=== PATIENT | male | born 1965 | race Caucasian/White ===

== ENCOUNTER 2020-06-16 17:45 | Inpatient (IN) ==
[2020-06-16] MEDS ORDERED: ONDANSETRON INJ 2 MG/ML 2 ML VIAL IV STA ×2 (18:20→19:44)
[2020-06-16] MEDS: HYDROmorphone INJ 0.5 MG/0.5 ML SYR IV PRN ×2 (18:25→19:53)
[2020-06-16 18:30] LABS: Hematocrit (blood only) 42.2 % (42-52); Hemoglobin 15.2 g/dL (14.0-18.0); Immature Granulocytes # (auto) 0.02 K/uL (0.00-0.02); Immature Granulocytes % (auto) 0.2 %; Lymphocytes # (auto) 0.46 K/uL (1.2-3.4); Lymphocytes % (auto) 3.6 %; Mean Corpuscular Volume 85.9 fL (80-100); Mean Platelet Volume 9.3 fL (7.4-10.4); Monocytes # (auto) 0.41 K/uL (0.11-0.59); Monocytes % (auto) 3.2 %; Neutrophils # (auto) 12.04 K/uL (1.4-6.5); Platelet Count 312 K/uL (130-400); RDW Coefficient of Variation 12.8 % (11.5-14.5); RDW Standard Deviation 40.2 fL (36.4-46.3); Red Blood Count 4.91 M/uL (4.7-6.1); White Blood Count 12.93 K/uL (4.8-10.8)
[2020-06-16] MEDS ORDERED: SODIUM CHLORIDE 0.9% 1000ML 1,000 ML IV SCH (18:30)
[2020-06-16 18:51] LABS: Albumin Level 4.3 gm/dl (3.4-5.0); Calcium 9.8 mg/dl (8.5-10.1); Creatinine Clr Calc Pharmacy 56.3 ml/min; Potassium 3.6 mmol/L (3.5-5.1)
[2020-06-16 18:54] LABS: Bilirubin,Total 0.8 mg/dl (0.2-1); Globulin 4.2 gm/dl (2.5-4.0); Total Protein 8.5 gm/dl (6.4-8.2)
[2020-06-16 18:55] LABS: Appearance Urine Clear (Clear); Bacteria Urine Automated Negative (Negative); Bilirubin Urine Negative (Negative); Blood Urine Negative (Negative); Color Urine Yellow; Epithelial Cell Urine Auto 20-30 /lpf (0-5); Glucose Urine UA Negative (Negative); Ketones Urine 1+ (Negative); Leukocyte Esterase Urine Negative (Negative); Nitrite Urine Negative (Negative); RBC Urine Automated 0-4 /hpf (0-4); Specific Gravity Urine 1.015 (1.000-1.030); Urobilinogen Urine Negative (Negative); pH Urine 7.5 (4.5-7.5)
[2020-06-16 19:05] LABS: Protein Urine Negative (Negative); Sulfosalicylic Acid Urine Negative (Negative)
[2020-06-16] MEDS ORDERED: IOVERSOL 100ml IV ONE (19:23)
[2020-06-16] MEDS ORDERED: LACTATED RINGER'S 1,000 ML IV SCH (19:45)
--- NOTE | 2020-06-16 20:06 | CT Scan Report ---
CT OF THE ABDOMEN AND PELVIS WITH CONTRAST CLINICAL HISTORY: Upper abdomen pain. Evaluate for acute pancreatitis. COMPARISON STUDY: CT of the abdomen and pelvis September 08, 2018. MRCP April 28, 2010. TECHNIQUE: Following IV administration of 93 mL of Optiray-320, axial images of the abdomen and pelvi s were obtained from the lung bases to the proximal femurs. Images were reviewed in the axial, sagitt al, and coronal planes. IV contrast was administered without complication. Automated exposure contro l was utilized for the study. A dose lowering technique was utilized adhering to the principles of A NEAL. CT DOSE: 772.95 mGycm FINDINGS: Lung bases are unremarkable. No pneumatosis, free air or portal venous gas is present. Ther e is probable fatty infiltration of the liver. No biliary or pancreatic ductal dilatation is noted. N ote is made of moderate peripancreatic infiltration and fluid. In addition, there is fluid adjacent t o the duodenum and extending within the bilateral anterior pararenal spaces. The pancreatic head and uncinate process are edematous. There is no evidence for gland necrosis. Note is made of a small 1.5 cm fluid collection located between the pylorus and the pancreas. No additional peripancreatic fluid collections are present. The splenic vein is patent. No pseudoaneurysm is identified on this non-CTA exam. The spleen, adrenal glands and kidneys are normal. The appendix is normal. There is no evidence for a bowel obstruction. Colonic diverticulosis is noted without evidence for acute diverticulitis. Mild bladder wall thickening is present. Major vasculature is patent. There are no suspicious osseous lesions. IMPRESSION: Findings consistent with acute pancreatitis. No evidence for gland necrosis. Edematous p ancreatic head and uncinate process with moderate peripancreatic fluid and infiltration. Small 1.5 cm acute peripancreatic fluid collection. ACT 112: Negative or not required by law. Electronically signed by: Jason Mcclain M.D. 06/16/2020 8:05 PM
--- NOTE | 2020-06-16 21:44 | History & Physical Report ---
Date of Service June 16, 2020 Assessment & Plan (1) DJD of both shoulders: (2) Hyperlipidemia: (3) Hypertension: (4) Pancreatitis: Pt is a 55yo male with a Hx of recurrent pancreatitis, DJD of both shoulders, HTN and HLD who was admitted with acute alcoholic pancreatitis. Of note, pt would NOT like his PCP to be notified, informed or contacted about this hospital visit. Pancreatitis in the setting of recent alcohol use -Pt presents with abdominal pain, nausea and vomiting -pt states that he binge drinks beer, not a daily drinker -of note, pt was previously hospitalized here for the same after drinking while on vacation in [facility] -Denies a Hx of gallstones, hypertriglyceridemia or a recent scorpion bite -WBC elevated, lipase chronically elevated-this admission 10,590, CT abd/pelvis showed acute pancreatitis. -Trops and EKG ordered to rule out a cardiac cause given persistent epigastric pain -NPO -LR@200mls/hr -morphine 3mg q2h for pain -zofran 4mg q6h PRN and phenergan 12.5mg q6h PRN ordered for N/V BRENDA -Cr elevated to 1.55 in the setting of N/V, dehydration -baseline of ~ 1 -LR@200mls/hr as above -trend Cr with AM labs Alcohol abuse -Pt states he does NOT think he has a problem with alcohol as he is not a daily drinker -Would NOT like his PCP to know about his hospitalization this time, as he states he would like to tell him himself -will not put on AWSS protocol, but would closely monitor for signs of withdrawal -consider resources for help given repeated admissions for the same HTN -continue home valsartan-HCTZ 320mg/25mg daily HLD -continue home lovastatin 20mg daily Anxiety -continue home ativan 1mg PO TID PRN Insomnia -continue home temazepam 30mg PO qhs DJD of shoulder -stable FEN/GI: NPO except meds, LR@200mls/hr DVT Prophylaxis: Heparin BID CODE STATUS: Full code Dispo: Med/Surg History of Present Illness Primary Care Provider: NO PCP Pt is a 55yo male with a Hx of recurrent pancreatitis, DJD of both shoulders, HTN and HLD who was admitted with acute alcoholic pancreatitis. Of note, pt would NOT like his PCP to be notified, informed or contacted about this hospital visit. Pt states that he had 9 beers last night and 6 beers the night before that. This morning after breakfast, he developed 3/10 abdominal pain that slowly progressed throughout the day to 10/10. The pain which is non-radiating was associated with nausea and frequent bouts of NBNB emesis. He states that he is does not believe he has a problem with alcohol, but his body just "reacts" abnormally to larger amounts of alcohol than usual. He was previously admitted here for the same in Aug 2018 after drinking while on vacation in [facility]. Of note, he does not want his PCP to be made aware of this hospitalization stating that he knows what he should be doing and does not want him "blindsided". He denies a Hx of gallst ones, states his gallbladder has not been removed. Lives alone with his dog and tonight denies that there is any underlying reason that makes him drink so much alcohol all at once. States he has been binge drinking since his college days. PMHx: HTN, HLD, DJD of both shoulders, Anxiety, Insomnia PSH: Shoulder surgery in 1988 Allergies: NKDA Meds: See below Fam Hx: Mom, , Hx of Parkinson's Dementia. Dad, 83 and alive. Hx of sciatica and had a heart valve replaced. Social hx: Never a smoker, no recreational drug use, states on average he drinks 1 beer a day but binge drinks mostly. Lives in [place] with his cat. 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 Allergies Allergy/AdvReac Type Severity Reaction Status Date / Time No Known Allergies Unverified 06/16/20 19:18 Home Medications Home Medications Medication Instructions Recorded Confirmed Type lorazepam 1 mg PO TID PRN 09/08/18 06/16/20 History lovastatin 20 mg PO QAM 09/08/18 06/16/20 History temazepam 30 mg PO HS 09/08/18 06/16/20 History valsartan-hydrochlorothiazide 1 tab PO DAILY 06/16/20 06/16/20 History Past Med/Surg History Medical History (Updated 04/23/20 @ 13:54 by [facility]) Hyperlipidemia Hypertension Kidney stones Fam hx Pancreatitis Surgical History History of shoulder surgery Right Family History Mother Parkinson disease Other Kidney stones Social History Smoking Status: Never smoker Hx Alcohol Use: Yes Alcohol type: beer Alcohol Intake Frequency Comment: Occasional Hx Substance Use: No Preferred Language: Amharic Communication Ability: Effective 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 Beliefs That Will Affect Care: None marital status: Single Current Living Situation: Alone current occupational status: employed Feels Safe at Home: Yes Safety Concerns: Feels Safe At This Time Assistive Devices: Glasses Review of Systems Constitutional: + anorexia; no fever, no chills and no sweats Eyes: no worsening vision Ear, Nose, Mouth, Throat: no nasal congestion and no sore throat Respiratory: no cough and no dyspnea Cardiovascular: no chest pain, no dyspnea on exertion, no palpitations and no edema Gastrointestinal: + abdominal pain, + nausea and + vomiting; no constipation, no diarrhea/loose stools and no blood in stools Genitourinary: no dysuria and no hematuria Musculoskeletal: no back pain Integumentary: no rash Neurologic: no tingling, no numbness, no headache(s) and no confusion Psychiatric: + anxiety; no confusion Physical Exam Physical Exam: General: Alert, oriented. No acute distress, laying in bed. Skin: No noted rashes or bruises Psych: Appropriate mood and affect Neuro: No gross deficits HEENT: NC/AT Chest: Nontender to palpation. CV: RRR, Normal s1, s2. No murmurs appreciated Resp: Breath sounds clear bilaterally, no increased effort of breathing. No crackles/rhonchi/rales. Abdomen: BS+. Soft, tender in epigastrium and RUQ and RLQ mostly, nondistended. Extremities: No edema in lower extremities bilaterally. Results & Data Results & Data ([facility]) Vital Signs (Past 12 Hours) Vital Signs Temp Pulse Resp BP Pulse Ox 06/16/20 21:00 56 L 14 156/97 H 99 06/16/20 20:30 60 16 151/97 H 100 06/16/20 20:00 72 22 150/98 H 99 06/16/20 19:44 70 19 154/107 H 99 06/16/20 19:36 59 L 19 06/16/20 19:11 55 L 16 100 06/16/20 19:00 50 L 23 148/85 H 99 06/16/20 17:54 36.3 C L 90 20 129/83 97 Supervising Physician Co-Signing Physician Notes Patient seen and examined, chart reviewed, case discussed with Dr. Gibbons and I agree with her assessment and plan as documented above. Briefly, patient is a 55yo C male presenting with acute pancreatitis secondary to EtOH intake. Patient has been admitted with the same in August 2018. States that he has been drinking more than usual. Epigastric abdominal pain and nausea similar to prior. Lab workup with elevated lipase. CT with findings consistent with acute pancreatitis. On physical exam patient is afebrile, mildly hypertensive and bradycardic, NAD, resting comfortably Skin - warm, dry, intact, no rashes/lesions, anicteric HEENT - NC/AT, PERRL, EOMI, MMM, neck supple Heart - +S1/S2, regular, bradycardic, no m/r/g Lungs - CTA Abd - diminished bowel sounds throughout, soft, ND, tender in epigastric region Ext - warm, well perfused, no clubbing/edema/cyanosis, 2+ pulses Neuro -grossly nonfocal Labs and images reviewed. Assessment/Plan - 55yo C male presenting with acute pancreatitis most likely secondary to EtOH use. No complications identified on CT. Patient is hemodynamically stable, nontoxic in appearance. +Pain and nausea -Admit to medical, NPO -Aggressive IVF with LR at 200mL/hr -Morphine as needed for pain -Zofran and Phenergan as needed for nausea -Continue qamar medications. Patient is on a thiazide diuretic which can lead to acute pancreatitis -Remainder of plan as above Of note, patient wishes that his PCP not be notified of his admission and wishes to "tell him in my own way". I informed him that his physician will most likely have access to [facility] records and may be alerted of his admission, however, we will not contact him personally. Resident Activity Tracking Resident Involvement: Resident Care Provided Care Provided: Adult Hospital Medicine (1) Hyperlipidemia Hyperlipidemia type: unspecified Qualified Code(s): E78.5 - Hyperlipidemia, unspecified (2) Pancreatitis Acute pancreatitis complication: unspecified Chronicity: acute Pancreatitis type: unspecified pancreatitis type Qualified Code(s): K85.90 - Acute pancreatitis without necrosis or infection, unspecified (3) Hypertension Hypertension type: essential hypertension Qualified Code(s): I10 - Essential (primary) hypertension
--- NOTE | 2020-06-16 21:44 | Emergency Department Note ---
Impression & Plan Pancreatitis ED Provider Note INFORMANT: Patient ED PROVIDER(S): Pan Higgins MD CHIEF COMPLAINT: Abdominal pain PLAN: Disposition: Admitted Condition: Good MEDICAL DECISION MAKING: Patient presented to the emergency department because of upper abdominal pain. IV was established. Patient was given Dilaudid and Zofran for symptom control. He was hydrated. His blood work was unremarkable except for an elevated lipase consistent with pancreatitis and mild leukocytosis. CT scan of the abdomen pelvis was performed and was consistent with pancreatitis as well. The patient was switched to lactated Ringer's at 250 mL an hour. He will need further management in the hospital. The patient was NPO. Consultation was made with internal medicine, Dr. Engel the patient was admitted for further management. Triage Nursing notes reviewed and agree them. Vital Signs: reviewed and remarkable for no significant abnormalities Differential diagnosis: Appendicitis, testicular torsion, infections, diverticulitis, UTI, obstruction, mesenteric ischemia, aortic pathology, inflammatory bowel disease, renal colic, PUD, pancreatitis, biliary pathology, hernia, volvulus, constipation, as well as other pathologies. Diagnostics interpreted by me: Cardiac Monitoring: Cardiac monitoring ordered by me: The patient was placed on continuous cardiac monitoring and observed. It revealed a normal sinus rhythm at 62 beats per minute without ectopy or evidence of dysrhythmia. Imaging studies: CT scan of the abdomen pelvis consistent with pancreatitis. I refer to the EMR for further details Consultation(s): [facility] hospitalist service, Dr. Engel HPI: The patient is a 55year old male who presents to the Emergency Room with complaints of upper abdominal pain. This started last night and is worsening. The patient also notes the following associated symptoms, nausea. The patient has found no relieving factors. Current pain is rated as 6/10. Patient has history of pancreatitis. He states this feels similar. He did have alcohol recently. Pt denies LOC, headache, fevers, chills, diaphoresis, visual changes, neck pain, chest pain, breathing difficulties, vomiting back pain, melena, hematochezia, urinary symptoms, numbness, weakness, lymphadenopathy, rash, or other complaints. ROS: See above HPI for pertinent positives & negatives. A total of 10 systems reviewed and were otherwise negative. PAST MEDICAL HISTORY:See Below, pancreatitis PAST SURGICAL HISTORY:See Below, FAMILY HISTORY:See Below SOCIAL HISTORY:See Below, positive EtOH HOME MEDICATIONS:See Below ALLERGIES:See Below VITALS:See Below PHYSICAL EXAMINATION: GENERAL: Awake, alert, uncomfortable-appearing, in no distress HENT: Normocephalic, atraumatic. Oropharynx unremarkable. EYES: Normal conjunctiva. Sclera non-icteric. NECK: Inspection normal. Non-tender. Supple. No nuchal rigidity. FROM. No masses. RESPIRATORY: Clear to auscultation. No wheezes. No rales. Normal respiratory effort. CARDIAC: Normal rate. Normal rhythm. No murmurs. No rubs. Extremities warm and well perfused. Pulses equal. No JVD. GI: Soft, non-distended. Upper midline tenderness to palpation. No rebound or g uarding. No masses. RECTAL: Deferred. MUSCULOSKELETAL: Atraumatic. Chest examination reveals no tenderness. The back is symmetrical on inspection without obvious abnormality. There is no CVA tenderness to palpation. No joint edema. LOWER EXTREMITIES: Calves are equal size bilaterally and non-tender. No edema. No discoloration. NEURO: Normal sensorium. No sensory or motor deficits noted. SKIN: No rash or jaundice noted. Pan Higgins MD Past Med/Surg History Medical History (Updated 04/23/20 @ 13:54 by [employer] [place]) Hyperlipidemia Hypertension Kidney stones Fam hx Pancreatitis Surgical History History of shoulder surgery Right Family History Mother Parkinson disease Other Kidney stones Social History Smoking Status: Never smoker Hx Alcohol Use: No Hx Substance Use: No Preferred Language: Serbian Communication Ability: Effective Tube Man Required: No Beliefs That Will Affect Care: None marital status: Single Current Living Situation: Alone current occupational status: employed Feels Safe at Home: Yes Assistive Devices: None Allergies Allergies Allergy/AdvReac Type Severity Reaction Status Date / Time No Known Allergies Unverified 06/16/20 19:18 Home Meds Home Medications Medication Instructions Recorded Confirmed lorazepam 1 mg PO TID PRN 09/08/18 06/16/20 lovastatin 20 mg PO QAM 09/08/18 06/16/20 temazepam 30 mg PO HS 09/08/18 06/16/20 valsartan-hydrochlorothiazide 1 tab PO DAILY 06/16/20 06/16/20 Results & Data (ED) Vital Signs Vital Signs - 24 hr 06/16/20 17:54 06/16/20 18:20 06/16/20 19:00 Temperature 36.3 C L Temperature Source Oral Pulse Rate 90 50 L Pulse Rate from SpO2 Sensor 50 L Respiratory Rate 20 23 Respiratory Effort / Characteristics Non-Labored Respiratory Depth Normal Blood Pressure 129/83 148/85 H Blood Pressure Mean 98 116 Pulse Oximetry 97 99 Oxygen Delivery Method Room Air Room Air Sepsis Recent Fever Within 48 Hours No Sepsis New/Unexplained Change in Mental Status N/A Sepsis Action Taken by Nursing No Action Required 06/16/20 19:11 06/16/20 19:36 06/16/20 19:44 Temperature Temperature Source Pulse Rate 55 L 59 L 70 Pulse Rate from SpO2 Sensor 54 L 65 Respiratory Rate 16 19 19 Respiratory Effort / Characteristics Respiratory Depth Blood Pressure 154/107 H Blood Pressure Mean 124 Pulse Oximetry 100 99 Oxygen Delivery Method Sepsis Recent Fever Within 48 Hours Sepsis New/Unexplained Change in Mental Status Sepsis Action Taken by Nursing 06/16/20 20:00 06/16/20 20:30 06/16/20 21:00 Temperature Temperature Source Pulse Rate 72 60 56 L Pulse Rate from SpO2 Sensor 65 58 L 54 L Respiratory Rate 22 16 14 Respiratory Effort / Characteristics Respiratory Depth Blood Pressure 150/98 H 151/97 H 156/97 H Blood Pressure Mean 120 119 131 Pulse Oximetry 99 100 99 Oxygen Delivery Method Sepsis Recent Fever Within 48 Hours Sepsis New/Unexplained Change in Mental Status Sepsis Action Taken by Nursing Laboratory Data Result diagrams: 06/16/20 18:19 06/16/20 18:19 Lab Results 06/16/20 06/16/20 06/16/20 Range/Units 18:19 18:19 18:19 WBC 12.93 H (4.8-10.8) K/uL RBC 4.91 (4.7-6.1) M/uL Hgb 15.2 (14.0-18.0) g/dL Hct 42.2 (42-52) % MCV 85.9 (80-100) fL MCH 31.0 (25-34) pg MCHC 36.0 (32-36) g/dL RDW Std Deviation 40.2 (36.4-46.3) fL RDW Coeff of Shila 12.8 (11.5-14.5) % Plt Count 312 (130-400) K/uL MPV 9.3 (7.4-10.4) fL Immature Gran % (Auto) 0.2 % Neut % (Auto) 93.0 % Lymph % (Auto) 3.6 % Ripley % (Auto) 3.2 % Eos % (Auto) 0.0 % Baso % (Auto) 0.0 % Neut # (Auto) 12.04 H (1.4-6.5) K/uL Lymph # (Auto) 0.46 L (1.2-3.4) K/uL Ripley # (Auto) 0.41 (0.11-0.59) K/uL Eos # (Auto) 0.00 (0-0.5) K/uL Baso # (Auto) 0.00 (0-0.2) K/uL Immature Gran # (Auto) 0.02 (0.00-0.02) K/uL Sodium 131 L (136-145) mmol/L Potassium 3.6 (3.5-5.1) mmol/L Chloride 97 L (98-107) mmol/L Carbon Dioxide 25 (21-32) mmol/L Anion Gap 9.0 (3-11) BUN 16 (7-18) mg/dl Creatinine 1.55 H (0.6-1.4) mg/dl Est Cr Clr Drug Dosing 56.3 ml/min Est GFR ( Amer) 58.0 Est GFR (Non-Af Amer) 50.0 BUN/Creatinine Ratio 10.0 (10-20) Glucose 156 H (70-99) mg/dl Calcium 9.8 (8.5-10.1) mg/dl Total Bilirubin 0.8 (0.2-1) mg/dl AST 36 (15-37) U/L ALT 44 (12-78) U/L Alkaline Phosphatase 99 (45-117) U/L Total Protein 8.5 H (6.4-8.2) gm/dl Albumin 4.3 (3.4-5.0) gm/dl Globulin 4.2 H (2.5-4.0) gm/dl Albumin/Globulin Ratio 1.0 (0.9-2) Lipase 20216 H (73-393) U/L Urine Color Yellow Urine Appearance Clear (Clear) Urine pH 7.5 (4.5-7.5) Ur Specific Wilton 1.015 (1.000-1.030) Urine Protein Negative (Negative) Urine Glucose (UA) Negative (Negative) Urine Ketones 1+ H (Negative) Urine Blood Negative (Negative) Urine Nitrite Negative (Negative) Urine Bilirubin Negative (Negative) Urine Urobilinogen Negative (Negative) Ur Leukocyte Esterase Negative (Negative) Urine WBC (Auto) 1-5 (0-5) /hpf Urine RBC (Auto) 0-4 (0-4) /hpf U Hyaline Cast (Auto) 10-30 H (0-5) /lpf U Epithel Cells (Auto) 20-30 H (0-5) /lpf Urine Bacteria (Auto) Negative (Negative) Administered Medications Hydromorphone HCl (Hydromorphone Inj 0.5 Mg/0.5 Ml Syr) 0.5 mg IV Q15M PRN PRN Reason: Pain Stop: 06/30/20 18:19 Last Admin: 06/16/20 19:53 Dose: 0.5 mg Documented by: [id number] Admin: 06/16/20 18:25 Dose: 0.5 mg Documented by: [id number] Lactated Ringer's (Lr) 1,000 mls @ 250 mls/hr IV .Q4H CINDY Stop: 07/16/20 19:44 Last Admin: 06/16/20 19:52 Dose: 250 mls/hr Documented by: [id number] Discontinued Medications Sodium Chloride (Nss 1000ml) 1,000 mls @ 999 mls/hr IV .Q1H1M CINDY Stop: 06/16/20 19:30 Last Infusion: 06/16/20 19:57 Dose: 0 mls/hr Documented by: [id number] Admin: 06/16/20 18:24 Dose: 999 mls/hr Documented by: [id number] Ioversol (Ioversol 100ml) 93 ml IV ONCE ONE Stop: 06/16/20 19:24 Last Admin: 06/16/20 19:23 Dose: 93 ml Documented by: [id number] Ondansetron HCl (Ondansetron Inj 2 Mg/Ml 2 Ml Vial) 4 mg IV NOW STA Stop: 06/16/20 18:21 Last Admin: 06/16/20 18:25 Dose: 4 mg Documented by: [id number] Ondansetron HCl (Ondansetron Inj 2 Mg/Ml 2 Ml Vial) 4 mg IV NOW STA Stop: 06/16/20 19:45 Last Admin: 06/16/20 19:53 Dose: 4 mg Documented by: [id number] Discharge Plan Visit Data Chief Complaint: Abdominal Pain Stated Complaint: POSSIBLY ACUTE PANCREATITIS ED Provider: Pan Higgins Discharge Problem: Pancreatitis Discharge Instructions Interventions: ED Discharge Assessment Last Done: 06/16/20 21:26
[2020-06-16] MEDS ORDERED: ALUMINUM/MAGNESIUM/SIMETH (MAALOX MAX) 30 ML UDC PO PRN (21:48)
[2020-06-16] MEDS ORDERED: ACETAMINOPHEN 1000 MG/100 ML IV IV PRN (21:48)
[2020-06-16] MEDS ORDERED: MoRPHine SULFATE 2 MG/ML CARP IV PRN (21:48)
[2020-06-16] MEDS ORDERED: LORazepam 1 MG TAB PO PRN (22:03)
[2020-06-16] MEDS: ONDANSETRON INJ 2 MG/ML 2 ML VIAL IV SCH (22:07)
[2020-06-16] MEDS: LACTATED RINGER'S 1,000 ML IV SCH (22:08)
[2020-06-16] MEDS ORDERED: PROMETHAZINE HCL 6.25 MG in SODIUM CHLORIDE 0.9% 50 ML IV STA (22:50)
[2020-06-16] MEDS: VALSARTAN 80 MG TAB PO SCH (23:15)
[2020-06-16] MEDS: hydroCHLOROthiazide 25 MG TAB PO SCH (23:19)
[2020-06-16] MEDS ORDERED: TEMAZEPAM 15 MG CAPSULE PO ONE (23:30)
[2020-06-16] MEDS: PROMETHAZINE HCL 12.5 MG in SODIUM CHLORIDE 0.9% 50 ML IV PRN (23:30)
--- NOTE | 2020-06-16 23:36 | Billing Data ---
Date of Service June 16, 2020 Coding Level of Care Code 26676 Initial Inpt Care Lvl 3
[2020-06-17] MEDS: MoRPHine SULFATE 4 MG/ML 1 ML CARP\\VIAL IV PRN ×7 (00:09→23:21)
[2020-06-17] MEDS: LACTATED RINGER'S 1,000 ML IV SCH ×5 (01:37→23:20)
[2020-06-17] MEDS: ONDANSETRON INJ 2 MG/ML 2 ML VIAL IV SCH ×4 (04:13→22:05)
[2020-06-17] MEDS: PROMETHAZINE HCL 12.5 MG in SODIUM CHLORIDE 0.9% 50 ML IV PRN (06:27)
--- NOTE | 2020-06-17 07:22 | Hospitalist Progress Note ---
Date of Service June 17, 2020 Assessment & Plan (1) Pancreatitis: Jayant is a 55yo male with a PMH including recurrent alcoholic pancreatitis, DJD of both shoulders, HTN and HLD who was admitted to [facility] on 06/16 with acute alcoholic pancreatitis. Of note, patient would NOT like his PCP to be notified, informed, or contacted about this hospital visit. Acute Pancreatitis 2/2 Recent Alcohol Binge - Clinically, patient presented with abdominal pain, nausea, and vomiting after a binge including 9+ beers on Thursday night - Diagnostically: - CT of the Abdomen/Pelvis demonstrated acute pancreatitis with a small 1.5cm peripancreatic fluid collection, no evidence of gland necrosis or biliary pathology. - Leukocytosis to 13, lipase significantly elevated to 10,590 - Mildly hyponatremic on admission labs (132), calcium normal - Hct slightly depressed at 39.5 - Contributing History / DDX: - Patient has multiple recent hospitalizations 2/2 acute alcoholic pancreatitis (most recently 08/2018) - Does not have hypertriglyceridemia, no h/o gallstones (not seen on image), no recent scorpion bite - Troponin on admission < 0.015, EKG demonstrated no rhythm abnormalities, ST-T changes, or new BBB - Plan: - NPO --> progress diet as tolerated - Maintain LR @ 200mls/hr - Morphine 3mg q2h PRN for pain - Zofran 4mg q6h PRN ; Phenergan 12.5mg q6h PRN ordered for N/V Acute Kidney Injury - Likely Prerenal - Baseline Cr: ~1 - Creatinine found to be elevated to 1.55 upon admission - Likely 2/2 dehydration from nausea, vomiting, and peripancreatic fluid losses from pancreatitis - LR @ 200mls/hr as above - BMP qAM Alcohol Abuse: At Contemplation/Determination Junction Stage of Change - Patient states that he binge drinks beer, not a daily drinker -- last drink: Thursday night (total intake of 9 beers continuously) - Patient realizes that "this is becoming a problem" with regards to multiple hospitalizations related to alcohol binges resulting in acute pancreatitis - After thorough discussion with him this morning, he is eager to create a plan that would help him minimize/remiss from further alcohol use/abuse in the future - Goals currently: "do not want to be hospitalized again for this"; "want to drink less"; also wants to try and understand what alcohol binging does for him when around other people - Not currently on AWSS -- can consider if beginning to show signs/symptoms of withdrawal - Patient does seem to be amenable to the idea of naltrexone injections with close outpatient follow-up at d/c -- says this worked very well for his brother - CT of abdomen/pelvis did demonstrate "probable fatty infiltration of the liver" - Liver enzymes WNL - Of note, patient would NOT like his PCP to be notified, informed, or contacted about this hospital visit - Discussed treatment with naltrexone - patient is very interested. if nausea and other GI symptoms well controlled on discharge - could be discharged home with rx for oral naltrexone and then transition to injection after seeing pcp in the office. HTN - Continue home valsartan-HCTZ 320mg/25mg daily HLD - Continue home lovastatin 20mg daily Anxiety - Continue home ativan 1mg PO TID PRN Insomnia - Continue home temazepam 30mg PO qhs DJD of shoulder - Stable FEN/GI: NPO except meds, LR@200mls/hr --> anticipate progressing diet beginning tonight (clears) DVT Prophylaxis: Heparin BID CODE STATUS: Full code Dispo: Med/Surg Admission and Anticipated Discharge Date Admission Date: June 16, 2020 Supervising Physician Co-Signing Physician Notes Resident Physician Supervision Note: I independently interviewed and examined the patient and verified the rea history and physical, reviewed labs and image studies, discussed the case with the resident Dr. Domingo and agree with the findings and care plan. Subjective NAEO. Continues to endorse mild, diffuse abdominal pain with intermittent nausea that is somewhat controlled on his antiemetics. Emesis x 1 was night. He is NPO. Otherwise denies fevers, chills, sweats, CP, palpitations, SOB, or recent changes in BMs (e.g., diarrhea, constipation). No other complaints. We spent significant time this AM discussing the reason for admission. He verbally states on several occasions that "this is becoming a problem," and expresses a desire to change his habits. He really would like to cut back or completely eliminate alcohol from his life. Notes that his last drink was on Thursday night (binge where he drank 9+ beers, preceded by 5 beers the night before). Review of Systems Review of Systems: as per HPI Physical Exam Constitutional: Tired-appearing 55-year-old gentleman who is lying back in his hospital bed sleeping upon my arrival. He is alert and oriented throughout our conversation, providing appropriate answers to questions. No tremor. NAD. Respiratory: normal respiratory effort, lungs clear to auscultation Cardiovascular: RRR, no murmur, no edema Gastrointestinal (Abdomen): Abdomen is soft and mildly distended. Diffuse TTP. No appreciable organomegaly. Psychiatric: A+Ox3, euthymic affect Results & Data Results & Data ([facility]) Vital Signs (Past 12 Hours) Vital Signs Temp Pulse Pulse Resp BP BP Pulse Ox 06/17/20 07:08 36.8 C 57 L 20 160/89 H 97 06/17/20 02:41 37 C 88 18 138/65 98 06/16/20 22:54 36.7 C 53 L 16 162/92 H 99 06/16/20 21:44 36.7 C 54 L 16 166/89 H 97 06/16/20 21:00 56 L 14 156/97 H 99 06/16/20 20:30 60 16 151/97 H 100 06/16/20 20:00 72 22 150/98 H 99 06/16/20 19:44 70 19 154/107 H 99 06/16/20 19:36 59 L 19 Resident Activity Tracking Resident Involvement: Resident Care Provided Care Provided: Adult Hospital Medicine (1) Pancreatitis Acute pancreatitis complication: unspecified Chronicity: acute Pancreatitis type: unspecified pancreatitis type Qualified Code(s): K85.90 - Acute pancreatitis without necrosis or infection, unspecified
[2020-06-17 08:18] LABS: Basophils # (auto) 0.01 K/uL (0-0.2); Basophils % (auto) 0.1 %; Hematocrit (blood only) 39.5 % (42-52); Hemoglobin 13.8 g/dL (14.0-18.0); Immature Granulocytes # (auto) 0.03 K/uL (0.00-0.02); Immature Granulocytes % (auto) 0.2 %; Lymphocytes # (auto) 0.77 K/uL (1.2-3.4); Lymphocytes % (auto) 5.9 %; Mean Corpuscular Hemoglobin 30.5 pg (25-34); Mean Corpuscular Hgb Conc 34.9 g/dL (32-36); Mean Corpuscular Volume 87.2 fL (80-100); Mean Platelet Volume 9.5 fL (7.4-10.4); Monocytes # (auto) 0.68 K/uL (0.11-0.59); Monocytes % (auto) 5.2 %; Neutrophils # (auto) 11.59 K/uL (1.4-6.5); Neutrophils % (auto) 88.6 %; Platelet Count 297 K/uL (130-400); RDW Coefficient of Variation 12.9 % (11.5-14.5); RDW Standard Deviation 41.8 fL (36.4-46.3); Red Blood Count 4.53 M/uL (4.7-6.1); White Blood Count 13.08 K/uL (4.8-10.8)
[2020-06-17] MEDS: hydroCHLOROthiazide 25 MG TAB PO SCH (08:26)
[2020-06-17] MEDS: VALSARTAN 80 MG TAB PO SCH (08:26)
[2020-06-17] MEDS: LOVASTATIN 20 MG TAB PO SCH (08:26)
[2020-06-17] MEDS: HEPARIN SOD 5,000 UNIT/0.5 ML VIAL SQ SCH ×2 (08:29→20:54)
[2020-06-17 08:45] LABS: Chol HDL Ratio 2; Cholesterol 134 mg/dl (0-200); HDL Cholesterol 59 mg/dl; LDL Cholesterol Calculated 61 mg/dl; Triglycerides 68 mg/dl (0-150); VLDL Cholesterol 14 mg/dl
[2020-06-17 08:46] LABS: Albumin Level 3.4 gm/dl (3.4-5.0); BUN Creatinine Ratio 11.4 (10-20); Calcium 9.1 mg/dl (8.5-10.1); Creatinine Clr Calc Pharmacy 71.5 ml/min; Est GFR (African American) 77.4; Est GFR (Non-African American) 66.8; Potassium 3.6 mmol/L (3.5-5.1)
[2020-06-17 08:49] LABS: Albumin Globulin Ratio 0.9 (0.9-2); Bilirubin,Total 0.7 mg/dl (0.2-1); Globulin 3.7 gm/dl (2.5-4.0); Total Protein 7.1 gm/dl (6.4-8.2)
[2020-06-17] MEDS ORDERED: hydroCHLOROthiazide 25 MG TAB PO SCH (09:00)
[2020-06-17] MEDS ORDERED: VALSARTAN 80 MG TAB PO SCH (09:00)
[2020-06-17] MEDS ORDERED: TEMAZEPAM 15 MG CAPSULE PO SCH (21:00)
[2020-06-17 23:08] VITALS: O2SAT 94
[2020-06-18] MEDS: LACTATED RINGER'S 1,000 ML IV SCH ×3 (04:18→12:53)
[2020-06-18] MEDS: ONDANSETRON INJ 2 MG/ML 2 ML VIAL IV SCH ×4 (04:18→16:23)
[2020-06-18] MEDS: MoRPHine SULFATE 4 MG/ML 1 ML CARP\\VIAL IV PRN (04:27)
--- NOTE | 2020-06-18 06:02 | Electrocardiogram Report ---
Test Reason : Blood Pressure : / mmHG Vent. Rate : 057 BPM Atrial Rate : 057 BPM P-R Int : 170 ms QRS Dur : 090 ms QT Int : 480 ms P-R-T Axes : 060 064 056 degrees QTc Int : 467 ms Sinus bradycardia Otherwise normal ECG When compared with ECG of 08-SEP-2018 21:42, No significant change was found Confirmed by Johny Caldwell ([id number]) on 06/18/2020 6:01:58 AM Referred By: REFERRED SELF Confirmed By:Johny Caldwell
[2020-06-18 06:09] LABS: Basophils # (auto) 0.01 K/uL (0-0.2); Basophils % (auto) 0.1 %; Eosinophils # (auto) 0.01 K/uL (0-0.5); Eosinophils % (auto) 0.1 %; Hematocrit (blood only) 33.6 % (42-52); Hemoglobin 11.5 g/dL (14.0-18.0); Immature Granulocytes # (auto) 0.02 K/uL (0.00-0.02); Immature Granulocytes % (auto) 0.2 %; Lymphocytes # (auto) 1.18 K/uL (1.2-3.4); Lymphocytes % (auto) 11.5 %; Mean Corpuscular Hemoglobin 30.1 pg (25-34); Mean Corpuscular Hgb Conc 34.2 g/dL (32-36); Mean Platelet Volume 9.6 fL (7.4-10.4); Monocytes # (auto) 0.72 K/uL (0.11-0.59); Neutrophils # (auto) 8.36 K/uL (1.4-6.5); Neutrophils % (auto) 81.1 %; Platelet Count 248 K/uL (130-400); RDW Standard Deviation 41.8 fL (36.4-46.3); Red Blood Count 3.82 M/uL (4.7-6.1)
[2020-06-18 06:38] LABS: Albumin Level 2.7 gm/dl (3.4-5.0); BUN Creatinine Ratio 11.7 (10-20); Calcium 8.2 mg/dl (8.5-10.1); Creatinine Clr Calc Pharmacy 92.8 ml/min; Est GFR (African American) 106.1; Est GFR (Non-African American) 91.6; Potassium 3.2 mmol/L (3.5-5.1)
[2020-06-18 06:41] LABS: Albumin Globulin Ratio 0.8 (0.9-2); Bilirubin,Total 0.8 mg/dl (0.2-1); Globulin 3.3 gm/dl (2.5-4.0)
[2020-06-18 08:14] VITALS: BP 117/69; PULSE 76; TEMP 99
[2020-06-18] MEDS: POTASSIUM CHLORIDE / WTR 10 MEQ/100 ML PLCT IV SCH ×4 (08:43→12:52)
[2020-06-18] MEDS: LOVASTATIN 20 MG TAB PO SCH (08:43)
[2020-06-18] MEDS: hydroCHLOROthiazide 25 MG TAB PO SCH (08:44)
[2020-06-18] MEDS: VALSARTAN 80 MG TAB PO SCH (08:44)
[2020-06-18] MEDS: HEPARIN SOD 5,000 UNIT/0.5 ML VIAL SQ SCH (08:52)
--- NOTE | 2020-06-18 09:08 | Hospitalist Progress Note ---
Date of Service June 18, 2020 Assessment & Plan (1) Pancreatitis: Jayant is a 55yo male with a PMH including recurrent alcoholic pancreatitis, DJD of both shoulders, HTN and HLD who was admitted to [facility] on 06/16 with acute alcoholic pancreatitis. Of note, patient would NOT like his PCP to be notified, informed, or contacted about this hospital visit. Acute Pancreatitis 2/2 Recent Alcohol Binge - Clinically, patient presented with abdominal pain, nausea, and vomiting after a binge including 9+ beers on Thursday night - Diagnostically: - CT of the Abdomen/Pelvis demonstrated acute pancreatitis with a small 1.5cm peripancreatic fluid collection, no evidence of gland necrosis or biliary pathology. - Leukocytosis to 13, lipase significantly elevated to 10,590 - Mildly hyponatremic on admission labs (132), calcium normal - Hct slightly depressed at 39.5 - Contributing History / DDX: - Patient has multiple recent hospitalizations 2/2 acute alcoholic pancreatitis (most recently 08/2018) - Does not have hypertriglyceridemia, no h/o gallstones (not seen on image), no recent scorpion bite - Troponin on admission < 0.015, EKG demonstrated no rhythm abnormalities, ST-T changes, or new BBB - Plan: - NPO --> progress diet as tolerated - Maintain LR @ 200mls/hr - Morphine 3mg q2h PRN for pain - Zofran 4mg q6h PRN ; Phenergan 12.5mg q6h PRN ordered for N/V Acute Kidney Injury - Likely Prerenal - Baseline Cr: ~1 - Creatinine found to be elevated to 1.55 upon admission - Likely 2/2 dehydration from nausea, vomiting, and peripancreatic fluid losses from pancreatitis - LR @ 200mls/hr as above - BMP qAM Alcohol Abuse: At Contemplation/Determination Junction Stage of Change - Patient states that he binge drinks beer, not a daily drinker -- last drink: Thursday night (total intake of 9 beers continuously) - Patient realizes that "this is becoming a problem" with regards to multiple hospitalizations related to alcohol binges resulting in acute pancreatitis - After thorough discussion with him this morning, he is eager to create a plan that would help him minimize/remiss from further alcohol use/abuse in the future - Goals currently: "do not want to be hospitalized again for this"; "want to drink less"; also wants to try and understand what alcohol binging does for him when around other people - Not currently on AWSS -- can consider if beginning to show signs/symptoms of withdrawal - Patient does seem to be amenable to the idea of naltrexone injections with close outpatient follow-up at d/c -- says this worked very well for his brother - CT of abdomen/pelvis did demonstrate "probable fatty infiltration of the liver" - Liver enzymes WNL - Of note, patient would NOT like his PCP to be notified, informed, or contacted about this hospital visit - Discussed treatment with naltrexone - patient is very interested. if nausea and other GI symptoms well controlled on discharge - could be discharged home with rx for oral naltrexone and then transition to injection after seeing pcp in the office. HTN - Continue home valsartan-HCTZ 320mg/25mg daily HLD - Continue home lovastatin 20mg daily Anxiety - Continue home ativan 1mg PO TID PRN Insomnia - Continue home temazepam 30mg PO qhs DJD of shoulder - Stable FEN/GI: NPO except meds, LR@200mls/hr --> anticipate progressing diet beginning tonight (clears) DVT Prophylaxis: Heparin BID CODE STATUS: Full code Dispo: Med/Surg Admission and Anticipated Discharge Date Admission Date: June 16, 2020 Subjective current pain much better. at the moment, 2.5/10 (vs 10 on admission). tolerating liquid diet. up for trying next diet. no nausea/vomiting. did take zofran.ok to transition to next step (from clears). patient feels perhaps go home today ok.. recheck after full liquid diet. transition to po. meds. abd pain epigastric. all other ros neg. no f/c, v, cp, sob this time is different. patient feels like he wants to quit drinking, in contrast to previous episodes. ok w/ dr cordero or i to call to follow up. he wants his own timeline. >1 month probably. Review of Systems Review of Systems: Constitutional: Denies fever, chills, weight change Eyes: Denies blurry vision, vision changes ENT: Denies sore throat, sinus pain Cardiovascular: Denies chest pain, palpitations Respiratory: Denies shortness of breath, cough, sputum production, difficulty breathing Gastrointestinal: Denies abdominal pain, nausea, vomiting, constipation, diarrhea Genitourinary: Denies urinary symptoms including dysuria Musculoskeletal: Denies weakness, muscle aches/pain, joint aches/pain Neurological: Denies headache, numbness, tingling, focal weakness Physical Exam Physical Exam: General: Grossly A&O. NAD. Cooperative. HEENT: Atraumatic, normocephalic. EOMI Pulm: CTAB. -wheezes, -rales, -rhonchi. No respiratory distress. Cardiac: RRR, -mrg. Radial pulses intact and symmetrical. Abdominal: Nontender, nondistended, soft. heart lungs abd nontender. slightly full feeling (just ate) no pedal edema. nirav. mmm Results & Data Results & Data ([facility]) Vital Signs (Past 12 Hours) Vital Signs Temp Pulse Resp BP Pulse Ox 06/18/20 08:12 37.2 C 76 18 117/69 94 06/17/20 23:07 36.9 C 53 L 15 134/80 94 (1) Pancreatitis Acute pancreatitis complication: unspecified Chronicity: acute Pancreatitis type: unspecified pancreatitis type Qualified Code(s): K85.90 - Acute pancreatitis without necrosis or infection, unspecified
[2020-06-18] MEDS ORDERED: oxyCODONE HCL SOLN 5 MG/5 ML UDC PO PRN (10:45)
[2020-06-18] MEDS ORDERED: ONDANSETRON 4 MG OD TAB PO STA (16:19)
--- NOTE | 2020-06-18 19:04 | Discharge Summary ---
Date of Service June 18, 2020 Admission HPI Per Admitting Provider Pt is a 55yo male with a Hx of recurrent pancreatitis, DJD of both shoulders, HTN and HLD who was admitted with acute alcoholic pancreatitis. Of note, pt would NOT like his PCP to be notified, informed or contacted about this hospital visit. Pt states that he had 9 beers last night and 6 beers the night before that. This morning after breakfast, he developed 3/10 abdominal pain that slowly progressed throughout the day to 10/10. The pain which is non-radiating was associated with nausea and frequent bouts of NBNB emesis. He states that he is does not believe he has a problem with alcohol, but his body just "reacts" abnormally to larger amounts of alcohol than usual. He was previously admitted here for the same in Aug 2018 after drinking while on vacation in [facility]. Of note, he does not want his PCP to be made aware of this hospitalization stating that he knows what he should be doing and does not want him "blindsided". He denies a Hx of gallstones, states his gallbladder has not been removed. Lives alone with his dog and tonight denies that there is any underlying reason that makes him drink so much alcohol all at once. States he has been binge drinking since his college days. PMHx: HTN, HLD, DJD of both shoulders, Anxiety, Insomnia PSH: Shoulder surgery in 1988 Allergies: NKDA Meds: See below Fam Hx: Mom, , Hx of Parkinson's Dementia. Dad, 83 and alive. Hx of sciatica and had a heart valve replaced. Social hx: Never a smoker, no recreational drug use, states on average he drinks 1 beer a day but binge drinks mostly. Lives in [place] with his cat. 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 Principal Diagnosis EtOH related pancreatitis Discharge Exam pleasantly anxious but otherwise nad heent nc at mmm breathing unlabored no accessory muscles good effort skin no rashes no pallor or icterus neuro no focal deficits. abd soft mild distention nontender no epigastric tenderness/guarding/rebound/rigidity. Discharge Data Allergies Allergy/AdvReac Type Severity Reaction Status Date / Time No Known Allergies Unverified 06/16/20 19:18 Ordered Studies 06/16/20 18:20 CT abd pelvis IV con only Stat Hospital Course (1) Pancreatitis: Jayant is a 55yo male with a PMH including recurrent alcoholic pancreatitis, DJD of both shoulders, HTN and HLD who was admitted to [facility] on 06/16 with acute alcoholic pancreatitis. Acute Pancreatitis 2/2 Recent Alcohol Binge - Clinically, patient presented with abdominal pain, nausea, and vomiting after a binge including 9+ beers on Thursday night - Diagnostically: - CT of the Abdomen/Pelvis demonstrated acute pancreatitis with a small 1.5cm peripancreatic fluid collection, no evidence of gland necrosis or biliary pathology. - Leukocytosis to 13, lipase significantly elevated to 10,590 - Mildly hyponatremic on admission labs (132), calcium normal - Hct slightly depressed at 39.5 - Contributing History / DDX: - Patient has multiple recent hospitalizations 2/2 acute alcoholic pancreatitis (most recently 08/2018) - Does not have hypertriglyceridemia, no h/o gallstones (not seen on image), no recent scorpion bite - Troponin on admission < 0.015, EKG demonstrated no rhythm abnormalities, ST-T changes, or new BBB -improved w fluids and supportive care - today eating regular food/tolerating well, pain controlled (and suspect he's starting to have less pancreatitis pain and more bowel/stool related pain - but still quite mild) -stable for home -f/u PCP / resident physicians who cared for him during this stay for continuity Acute Kidney Injury - Likely Prerenal - Baseline Cr: ~1 - Creatinine found to be elevated to 1.55 upon admission - Likely 2/2 dehydration from nausea, vomiting, and peripancreatic fluid losses from pancreatitis - LR @ 200mls/hr as above - improved. f/u BMP as outpt - gennaro due to Na and K being sl low Alcohol Abuse: At Contemplation/Determination Junction Stage of Change - realizing he should quit entirely - understands that he is more sensitive to EtOH pancreatitis complications and is higher risk for recurrence even without enormous binge (this time was far less EtoH than before) HTN - Continue home valsartan-HCTZ 320mg/25mg daily HLD - Continue home lovastatin 20mg daily Anxiety - Continue home ativan 1mg PO TID PRN Insomnia - Continue home temazepam 30mg PO qhs DJD of shoulder - Stable stable for home Total Time Total Time Spent Total Time Spent (In Minutes): >30 Discharge Plan Discharge Items Patient Disposition: Home - Self-Care Reason For Visit: ACUTE PANCREATITIS Discharge Diagnosis: pancreatitis Activity: Resume your previous activity Non-emergency contact: Primary Care Provider Call non-emergency contact if: you have any medication questions, your symptoms worsen, your pain is not controlled, your pain is worsening, your pain is unusual for you, your pain is concerning for you and your temperature is above 101.5 Follow-up/Referrals: PCP,NO [Primary Care Provider] - Diet: Low Fat Addtl Attending Provider Instructions: pancreatitis -for the next week or two, try to eat a fairly low-fat, low-protein diet. since our pancreas helps us digest proteins, staying low on this should help protect against worsening pain. since our bile ducts secrete bile to help absorb fats (and this "plumbing" is shared with our pancreas) eating low fat will also help the whole area rest. 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, but as you're recovering from this it will be helpful -in a week or two, carefully re-introduce protein OR fat at one meal to see how you feel - then if it goes well, gradually resume a normal diet -as we discussed, at this point your pancreas seems to be fairly sensitive to alcohol so it would be best to just totally avoid it indefinitely -follow up with Dr Domingo or Dr Stock (the resident physicians who saw you during this admission) in the next week or so at the [facility] - [phone] - so they can follow through with making sure you're getting better and help troubleshoot if things aren't feeling right. -be aware that frequently as pancreatitis gets better, people will trade the pain of the pancreatitis for pain from intestines moving slowly - if that is the case, utilizing something like miralax to help get your bowels moving can be quite helpful - but again that is where a degree of physician expertise and guidance can help you see if you're hurting because of something simple like intestinal pain or something more serious. -they'll also get a little bit of follow up labwork in a few weeks i apologize as i mis-spoke about what labs they'll need to follow up - your liver numbers were actually OK - it was needing to follow up on slightly low sodium and potassium levels as far as what they'll need to follow up on - again i apologize for the confusion (and thank you for your understanding!) Pending Studies at Discharge: No Stand-Alone Forms: My [facility], Smoking Cessation Medications and DC Order Prescriptions: Continued temazepam 30 mg capsule 30 mg PO HS RF: 0 lorazepam 1 mg tablet 1 mg PO TID PRN (Reason: Anxiety) RF: 0 lovastatin 20 mg tablet 20 mg PO QAM RF: 0 valsartan-hydrochlorothiazide 320-25 mg tablet 1 tab PO DAILY RF: 0 Discharge Orders: Discharge Order (Routine); Ordered 06/18/20 Ordered By: Micheal Nicolas/Other Patient Handouts: Low-Fat Cooking Tips, Understanding Pancreatitis, Nutrition and MyPlate: Protein Foods Admission Data Admit Date/Time: 06/16/20 21:01 Attending Provider: Micheal Cortez Admit Provider: Valerie Gibbons Primary Care Provider: PCP,NO Other Providers: Cathy Engel ; Delbert Stock ; Araceli Kruger Other Interventions: Discharge Summary Assessment (RN) Last Done: 06/18/20 16:10 Coding Level of Care Code D/C Day Management >30 mins Diagnoses Pancreatitis K85.90 Acute pancreatitis complication: unspecified Chronicity: acute Pancreatitis type: unspecified pancreatitis type
== END 2020-06-18 19:25 | disposition home or self-care (01) | DRG 439 ==
LOC: ED 17:45 → 3W 21:01 → SUATTDRO 21:01 → 3W 21:26
DX: E86.0 Dehydration; Z79.899 Other long term (current) drug therapy; E87.1 Hypo-osmolality and hyponatremia; G47.00 Insomnia, unspecified; I10 Essential (primary) hypertension; N17.9 Acute kidney failure, unspecified; Z51.81 Encounter for therapeutic drug level monitoring; E78.5 Hyperlipidemia, unspecified; F10.10 Alcohol abuse, uncomplicated; K85.20 Alcohol induced acute pancreatitis without necrosis or infection